=== PATIENT | male | born 1965 | race American Indian/Alaskan Native ===

== ENCOUNTER 2019-06-14 08:01 | Day surgery (SDC) | payer OTHER ==
[~2019-06-14 08:01] MED LIST: SODIUM CHLORIDE 0.9% 1000 ML 1,000 ML IV SCH
[2019-06-14] MEDS ORDERED: LIDOCAINE MPF (2%) 20 MG/1 ML VIAL 5 ML ONE (08:30)
--- NOTE | 2019-06-14 08:50 | Anesthesia Day of Surgery ---
Anesthesia Day of Surgery - Day of Surgery Patient Examined: Yes Patient H&P Reviewed: Yes Patient is NPO: Yes
--- NOTE | 2019-06-14 08:51 | Anesthesia Consultation ---
Anesthesia Consult and Med Hx Date of service: 06/14/19 - Airway Anesthetic Teeth Evaluation: Good ROM Head & Neck: Adequate Mental/Hyoid Distance: Adequate Mallampati Class: Class II Intubation Access Assessment: Good - Pre-Operative Health Status ASA Pre-Surgery Classification: ASA2 Proposed Anesthetic Plan: MAC - Pulmonary Hx Asthma: Yes (Stable-no inhalers X 1 year) - Cardiovascular System Hx Hypertension: No (Had issue in the past)
[2019-06-14] MEDS ORDERED: propofoL 200 MG/20 ML VIAL IV ONE ×2 (09:39)
--- NOTE | 2019-06-14 10:03 | Procedure Note ---
Date of procedure: 06/14/19 Pre-op diagnosis: Colon Polyp Screening Post-op diagnosis: other (Colon Polyps (Recto-sigmoid and Sigmoid)/ No Diverticuli and Minor,Internal hemorrhoid) Procedure: Colonoscopy with cold Biopsy and Cold, Snare Polypectomy Anesthesia: MAC Surgeon: LOWELL ANGULO Estimated blood loss: minimal Pathology: list Specimen disposition: to lab Condition: stable Disposition: same day (Resume home mediction but avoid aspirin and NSAID for 4 days. Follow up in 1 to 2 weeks ([phone]).)
--- NOTE | 2019-06-14 10:10 | Operative Report ---
PROCEDURE: Colonoscopy. INDICATIONS: This is a 53-year-old -[place] gentleman who is having a colonoscopy done as part of colon polyp screening. DESCRIPTION OF PROCEDURE: Procedure was done after getting informed consent with MAC anesthesia. Initial rectal exam was unremarkable. Instrument was passed through the rectum onto the cecum, which was identified by the ileocecal valve and the appendiceal orifice. The cecum was also examined on the retroverted view. No additional pathology was noted. Cecum, ascending colon, transverse colon, descending colon showed normal mucosa. In the distal sigmoid, there were 2 polyps noted; 1 was about 9 mm in diameter that was removed by cold snare polypectomy and retrieved, and the other was a smaller 7 to 8 mm polyp removed by cold biopsy. In the rectosigmoid area, there was an 8 mm polyp that was also removed by cold biopsy, and they were all placed in the same container to be sent to pathology. There was no diverticular disease noted, and the rectum showed minor internal hemorrhoid on the retroverted view. There was minimal bleeding from the biopsy and the polypectomy sites. ASSESSMENT: Colon polyp screening, colon polyps, rectosigmoid and sigmoid polyps. No diverticular disease. Minor internal hemorrhoid. PLAN: The patient will be asked to resume home medication, but avoid aspirin and aspirin-related products for the next 4 days, and follow up in the office in 1 to 2 weeks' time. JOB# [id number] SRIRAM/ISA
[2019-06-14 10:30] VITALS: BP 125/71
[2019-06-14] MEDS ORDERED: WATER FOR IRRIG STERILE 250 ML BOTTLE IR ONE (10:46)
--- NOTE | 2019-06-14 11:46 | Post Anesthesia Evaluation ---
- Post Anesthesia Evaluation Patient Participated: Yes Airway Patent: Yes Stable Respiratory Function: Yes Nausea/Vomiting: No Temp > 96.8F: Yes Pain Manageable: Yes Adequeate Hydration: Yes Anesthesia Complications: No Block Receding Appropriately: Not Applicable Patient on Ventilator: No
== END 2019-06-14 08:02 | disposition home or self-care (01) ==
LOC: GIO 08:01
DX: Z12.11 Encounter for screening for malignant neoplasm of colon (principal); K64.8 Other hemorrhoids; K63.5 Polyp of colon; J45.909 Unspecified asthma, uncomplicated; Z79.899 Other long term (current) drug therapy
CPT/HCPCS: 45380; 45385; 88305; J2704; J7030